=== PATIENT | female | born 1960 | race Caucasian/White ===

== ENCOUNTER 2021-11-03 10:32 | Emergency (ER) | payer MEDICAID ==
[~2021-11-03] VITALS: Ht 162.6 cm; Wt 106.4 kg
[~2021-11-03 10:32] MED LIST: ASPIRIN 81M81 MG/TA2 PO; BRINTELLIX10 PO; CLARITIN D TAB1 TAB PO; CLEOCIN HCL300 MG PO; DESYREL 100MG100 MG PO; FETZIMA120 PO; KLONOPIN 1MG1 MG PO; NEURONTIN300 MG/CAP PO; PREMARIN 0.60.625 M1 PO; RT ADVAIR 228 DISKUS IH; SUDAFED30 MG PO; ZOLOFT 100MG100 MG PO; ZYRTEC 10MG10 MG PO
[2021-11-03 10:35] VITALS: TEMP 97.8
[2021-11-03 12:00] VITALS: BP 123/48; PULSE 68
== END 2021-11-03 12:00 | disposition home or self-care (01) ==
LOC: COL.ER 10:32
DX: S01.112A Laceration without foreign body of left eyelid and periocular area, initial encounter (principal); I25.2 Old myocardial infarction; Z23 Encounter for immunization; Z79.01 Long term (current) use of anticoagulants; W01.198A Fall on same level from slipping, tripping and stumbling with subsequent striking against other object, initial encounter

== ENCOUNTER → 2021-11-08 | Outpatient (CLI) | payer MEDICAID ==
[2021-11-08 11:08] VITALS: BP 118/72; PULSE 107; TEMP 98.8
== END ==
LOC: COL.ER 10:53
DX: Z48.02 Encounter for removal of sutures (principal)